=== PATIENT | female | born 1960 | race Caucasian/White ===

== ENCOUNTER 2021-09-26 11:27 | Emergency (ER) | payer OTHER, SELFPAY ==
[2021-09-26] VITALS (38 sets, daily range): BP systolic 128–187; BP diastolic 61–86; PULSE 69–108; RESP 10–37; TEMP 36.6; O2SAT 89–100; BMI 26.6
--- NOTE | 2021-09-26 | DI.RAD.S_ITS ---
PROCEDURE: XR ANKLE LT 2V INDICATIONS: POST REDUCTION TECHNIQUE: 3 views of the ankle were acquired. COMPARISON: [facility], CR, XR ANKLE LT 2V, 09/26/2021, 11:46. FINDINGS: Bones: There is interval reduction of earlier noted displaced trimalleolar fracture with near anatomic alignment on the current study. No new fracture or dislocation is seen. No suspicious bony lesions. Soft tissues: No tibiotalar joint effusion. Achilles tendon appears normal. IMPRESSION: Interval reduction of earlier noted displaced trimalleolar fracture with improved ankle alignment. Dictated by: Kai Huff M.D. on 09/26/2021 at 15:13 Approved by: Kai Huff M.D. on 09/26/2021 at 15:13
--- NOTE | 2021-09-26 11:44 | DI.RAD.S_ITS ---
PROCEDURE: XR ANKLE LT 2V INDICATIONS: deformity TECHNIQUE: 2 views of the ankle were acquired. COMPARISON: [facility], CR, XR TIBIA FIBULA LT 2V, 09/26/2021, 11:46. FINDINGS: Bones: There is a comminuted, moderately displaced fracture of the distal fibula, with intra-articular involvement. There is also a moderately displaced medial malleolar fracture. Scrutiny is given to the posterior malleolus and no definite fracture can be seen. There is dislocation of the talus laterally nearly 2 cm. The talar dome demonstrates no jeffrey abnormality. A moderate plantar calcaneal spur is seen. Soft tissues: No tibiotalar joint effusion. Achilles tendon appears normal. IMPRESSION: Left ankle fracture dislocation, with fractures of the medial malleolus and the lateral malleolus. If it would be helpful for clinical management decision making in this patient with this given history, please consider a dedicated ankle CT for further evaluation. Dictated by: Johan Higgins M.D. on 09/26/2021 at 11:14 Approved by: Johan Higgins M.D. on 09/26/2021 at 11:16
--- NOTE | 2021-09-26 11:44 | DI.RAD.S_ITS ---
PROCEDURE: XR TIBIA FIBULA LT 2V INDICATIONS: deformity TECHNIQUE: 2 views of the tibia and fibula were acquired. COMPARISON: [facility], CR, XR ANKLE LT 2V, 09/26/2021, 11:46. FINDINGS: Bones: Moderately displaced fractures of the distal fibula and the medial malleolus can be seen, with translation of the talus 2 cm laterally in relation to the distal tibia. The talar dome demonstrates no jeffrey abnormality. No fractures of the proximal tibia or proximal fibula can be seen. A moderate plantar calcaneal spur is seen. Soft tissues: Associated soft tissue swelling is seen. IMPRESSION: Left ankle fracture/dislocation. Dictated by: Johan Higgins M.D. on 09/26/2021 at 11:16 Approved by: Johan Higgins M.D. on 09/26/2021 at 11:17
--- NOTE | 2021-09-26 12:27 | ED.FALL ---
HPI - Fall General Chief Complaint: Fall Stated Complaint: Fall from 6 ft. Time Seen by Provider: 09/26/21 12:06 Source: patient Mode of arrival: EMS Related Data Allergies Allergy/AdvReac Type Severity Reaction Status Date / Time Sulfa (Sulfonamide Allergy Verified 09/26/21 11:41 Antibiotics) Patient History Social History Smoking Status: Unknown if ever smoked Smoking Status: Unknown if ever smoked alcohol intake frequency: holidays/special occasions only Substance Use Type: does not use Exam Initial Vital Signs Initial Vital Signs: Vital Signs Temperature 97.9 F 09/26/21 11:31 Pulse Rate 85 09/26/21 11:31 Respiratory Rate 15 09/26/21 11:31 Blood Pressure 148/64 H 09/26/21 11:31 Pulse Oximetry 96 09/26/21 11:31 Course Orders Ordered: ED Orders 09/26/21 11:44 XR ankle LT 2V Stat XR tibia fibula LT 2V Stat Vital Signs Vital signs: Vital Signs - 8 hr 09/26/21 11:31 09/26/21 11:38 09/26/21 11:42 Temperature 97.9 F Pulse Rate 85 87 81 Respiratory Rate 15 14 Blood Pressure 148/64 H 148/66 H 151/74 H Pulse Oximetry 96 98 98 Discharge Plan Departure Referrals: Yomi Torres MD [Primary Care Provider] -
--- NOTE | 2021-09-26 12:48 | ED_ITS ---
HPI - Fall General Chief Complaint: Fall Stated Complaint: Fall from 6 ft. Time Seen by Provider: 09/26/21 12:06 Source: patient Mode of arrival: EMS History of Present Illness HPI Narrative: The patient and her were staying on a local boat this morning. She climbed down the boat ladder, she lost her safety intern and fell. She caught her left leg ankle in the rungs of the boat ladder, twisting her left ankle. She has deformity to left ankle, she could not stand, she arrives by EMS. There was no head or neck injury. She has no confusion or LOC. She denies chest pain, abdominal pain, or dyspnea. She has no back discomfort. She has no upper extremity or right leg discomfort. Injuries are limited to the left leg. The left ankle is splinted. She was medicated by paramedics, she is comfortable upon arrival. There is no numbness or tingling in the left leg. She denies recent illness. She has no respiratory issues. Her last meal was about 9:00 a.m. Related Data Previous Rx's Medication Instructions Recorded hydrocodone 5 mg-acetaminophen 325 1 tab PO Q4-6H PRN #20 tab 09/26/21 mg tablet Allergies Allergy/AdvReac Type Severity Reaction Status Date / Time Sulfa (Sulfonamide Allergy Verified 09/26/21 11:41 Antibiotics) Review of Systems Review of Systems Narrative: See HPI Patient History Medical History (Updated 09/26/21 @ 16:18 by Moustapha Rapp MD) Hypothyroidism Social History Smoking Status: Unknown if ever smoked Smoking Status: Unknown if ever smoked alcohol intake frequency: holidays/special occasions only Substance Use Type: does not use Exam Initial Vital Signs Initial Vital Signs: Vital Signs Temperature 97.9 F 09/26/21 11:31 Pulse Rate 85 09/26/21 11:31 Respiratory Rate 15 09/26/21 11:31 Blood Pressure 148/64 H 09/26/21 11:31 Pulse Oximetry 96 09/26/21 11:31 Const General: cooperative, healthy appearing and comfortable [facility] Head: normal to inspection, normocephalic and atraumatic Face and sinus: normal facial exam Mouth: oral mucosae normal Throat: posterior oropharynx normal Eyes General: appearance normal, both eyes and all related structures Pupils: PERRL EOM: EOM intact bilaterally Neck Neck: full ROM and No tender Chest Other: Nontender Resp Auscultation: clear to auscultation bilaterally Cardio Rate: regular rate Rhythm: regular rhythm Heart Sounds: S1 normal, S2 normal, no click and no murmurs GI Inspection: normal to inspection Palpation: No tender Auscultation: normal bowel sounds Back/Spine/Pelvis Back: normal to inspection Skin General: no rashes or lesions noted Neuro General: patient alert, patient awake, patient oriented x3 and no focal motor deficits Extrem Other: Upper extremities are atraumatic. Right leg is atraumatic. Left leg shows no tenderness in the hip, knee or calf. There is a fracture dislocation of the right ankle. There is abrasion over the medial malleolus. There is a palpable rough edge of the fracture site. There is no obvious penetration from the bone. The right foot is nontender, the right dorsalis pedis pulses normal. Psych Mental Status: mental status grossly normal Procedures Orthopedic Fracture Reduction Fracture #1: Time Out Performed: Yes Side: left Fracture Reduction Location: tibia and fibula (Laterally displaced bimalleolar fracture) Analgesia: procedural sedation Technique: direct manipulation and traction/counter-traction Post Reduction X-rays Demonstrate: anatomical reduction Post-reduction neuro exam: intact Post-reduction vascular exam: intact Splint Applied: Yes Patient Tolerated Procedure: Well Orthopedic Splinting/Casting Injury #1: Side: left Lower Extremity Injury Location: ankle Lower Extremity Immobilizer: posterior splint and stirrup splint Other Orthopedic Equipment: crutches Post splinting neuro exam: intact Post splinting vascular exam: intact Placed by: Provider Additional Comments: The patient was fit for crutches by the nurse after the splint had dried. Procedural Sedation Consent signed: Yes Time out performed: Yes Indication: fracture/dislocation reduction ASA Class: I Mallampati Airway Classification: Class I Time of Last PO Intake: 09:00 IV Etomidate dose (mg): 8 ED Sedation Level: Moderate (Concious) Patient Tolerated Procedure: Well and No complications Complications: none Course Course Course Narrative: Dr. Mejias, orthopedics, was consulted about the wound. There is an abrasion the medial malleolus with a edge of the fracture palpable just below the surface of the skin. There is no visible bone contusion from the site. The edge of bone was quite palpable, concerning for an open fracture. Yet no bony edge was seen. Dr. Mejias doubt it potential perforation of bone without clear evidence. He advised reduction, splinting and arrange follow-up Orders Ordered: ED Orders 09/26/21 11:44 XR ankle LT 2V Stat XR tibia fibula LT 2V Stat Discontinued Medications Etomidate (Etomidate 2 Mg/Ml 10 Ml Vial) 12 mg IV NOW ONE Stop: 09/26/21 14:00 Last Admin: 09/26/21 14:44 Dose: 8 mg Documented by: DARLINE Hydromorphone HCl (Hydromorphone 1 Mg Inj) 1 mg IV NOW ONE Stop: 09/26/21 12:38 Last Admin: 09/26/21 12:53 Dose: 1 mg Documented by: DARLINE Vital Signs Vital signs: Vital Signs - 8 hr 09/26/21 11:31 09/26/21 11:38 09/26/21 11:42 Temperature 97.9 F Pulse Rate 85 87 81 Respiratory Rate 15 14 Blood Pressure 148/64 H 148/66 H 151/74 H Pulse Oximetry 96 98 98 09/26/21 13:15 09/26/21 13:20 09/26/21 13:25 Temperature Pulse Rate 74 76 73 Respiratory Rate 12 16 12 Blood Pressure Pulse Oximetry 95 96 96 09/26/21 13:30 09/26/21 13:35 09/26/21 13:40 Temperature Pulse Rate 73 74 74 Respiratory Rate 15 21 18 Blood Pressure 137/70 Pulse Oximetry 95 97 96 09/26/21 13:45 09/26/21 13:50 09/26/21 13:51 Temperature Pulse Rate 83 97 H 91 H Respiratory Rate 19 37 H 23 Blood Pressure 165/74 H Pulse Oximetry 97 93 09/26/21 13:55 09/26/21 14:00 09/26/21 14:05 Temperature Pulse Rate 79 78 88 Respiratory Rate 11 L 18 10 L Blood Pressure 146/64 H Pulse Oximetry 97 96 97 09/26/21 14:10 09/26/21 14:15 09/26/21 14:20 Temperature Pulse Rate 85 79 80 Respiratory Rate 20 13 11 L Blood Pressure Pulse Oximetry 92 95 96 09/26/21 14:25 09/26/21 14:30 04/20/22 14:35 Temperature Pulse Rate 74 75 75 Respiratory Rate 12 16 17 Blood Pressure 138/67 Pulse Oximetry 96 97 96 09/26/21 14:40 09/26/21 14:43 09/26/21 14:45 Temperature Pulse Rate 84 85 89 Respiratory Rate 16 18 18 Blood Pressure 172/80 H 170/82 H Pulse Oximetry 95 98 98 09/26/21 14:50 09/26/21 14:51 09/26/21 14:55 Temperature Pulse Rate 97 H 97 H 75 Respiratory Rate 25 H 22 19 Blood Pressure 187/86 H Pulse Oximetry 100 100 100 09/26/21 14:56 09/26/21 15:00 09/26/21 15:05 Temperature Pulse Rate 69 71 70 Respiratory Rate 19 18 25 H Blood Pressure 149/70 H 147/61 H 157/77 H Pulse Oximetry 100 100 97 09/26/21 15:10 09/26/21 15:15 09/26/21 15:16 Temperature Pulse Rate 69 108 H 88 Respiratory Rate 15 27 H 18 Blood Pressure 144/74 H 140/66 Pulse Oximetry 96 89 L 91 09/26/21 15:20 09/26/21 15:25 09/26/21 15:30 Temperature Pulse Rate 78 74 74 Respiratory Rate 20 12 17 Blood Pressure 146/77 H 128/63 132/62 Pulse Oximetry 95 95 97 09/26/21 15:35 Temperature Pulse Rate 75 Respiratory Rate 13 Blood Pressure 128/62 Pulse Oximetry 91 MDM - Fall Lab Data Labs: Point of Care Testing Test Results Not applicable Imaging Data left ankle: Radiologist's Impression: ?Left ankle fracture dislocation, with fractures of the medial malleolus and the lateral malleolus. Left tib-fib: Radiologist's Impression: Left ankle fracture as noted above Discharge Plan Departure Patient Disposition: Home Clinical Impression: Bimalleolar fracture of left ankle Instructions: Ankle Fracture Activity Restrictions/Additional Instructions: Use crutches when up and about. The splint should remain in place. Apply ice to the anterior ankle frequently for the next 2 days. Contact her PCM to arrange follow-up with orthopedics. You will likely need surgery. See a surgeon local to your own residence, or follow-up here in [place] with Dr. Mejias, I will give you contact information if you choose his services. Tylenol or Advil as needed for pain. [place] every 4 hours as needed for added pain control. Return to the ER as necessary. Prescriptions: New hydrocodone-acetaminophen 5-325 mg tablet 1 tab PO Q4-6H PRN (Reason: pain) Qty: 20 0RF Referrals: Yomi Torres MD [Primary Care Provider] - Chris Mejias MD [Physician] -
[2021-09-26] MEDS: HYDROMORPHONE 1 MG INJ IV (12:53)
[2021-09-26] MEDS: ETOMIDATE 2 MG/ML 10 ML VIAL 12 MG IV (14:44)
[2021-09-26] MEDS: HYDROMORPHONE 0.5 MG INJ 1 MG (14:49)
[2021-09-26] MEDS: HYDROCODONE/ACET 5/325 TABLET 1 TAB PO (16:45)
== END 2021-09-26 16:46 | disposition home or self-care (01) ==
PROVIDERS: Emergency Provider Emergency Medicine; PCP Family Medicine
DX: S82.842A Displaced bimalleolar fracture of left lower leg, initial encounter for closed fracture (principal); V94.0XXA Hitting object or bottom of body of water due to fall from watercraft, initial encounter
CPT/HCPCS: 27810; 29515; 73590; 73600; 96374; 99152; 99284; 99285; J1170